=== PATIENT | female | born 1960 | race American Indian/Alaskan Native ===

== ENCOUNTER 2016-09-22 09:53 | Outpatient (CLI) | payer MEDICAID ==
--- NOTE | 2016-09-23 10:17 | Mammography Report ---
BILATERAL DIGITAL SCREENING MAMMOGRAM with CAD : 09/22/16 09:53:00 CLINICAL: Routine screening. COMPARISON:08/07/15 FINDINGS: The breasts are heterogeneously dense, which may obscure small masses. No mass, architectural distortion or suspicious calcifications. A 5 cm round medication patch on the upper inner left breast. IMPRESSION: No mammographic evidence of malignancy. BI-RADS CATEGORY: 2 -- Benign RECOMMENDATION: Routine mammographic screening in one year. COMMENT: Patient follow-up letters are generated by our [employer] application.
== END 2016-09-22 09:54 | disposition home or self-care (01) ==
LOC: SPVWC 09:53
PROVIDERS: ATTEND Internal Medicine
DX: Z12.31 Encounter for screening mammogram for malignant neoplasm of breast (principal)
CPT/HCPCS: 77067; G0202

== ENCOUNTER 2018-01-23 10:57 | Outpatient (CLI) | payer MEDICAID ==
--- NOTE | 2018-01-23 15:19 | Mammography Report ---
BILATERAL DIGITAL SCREENING MAMMOGRAM with CAD : 01/23/18 10:57:00 CLINICAL: Routine screening. COMPARISON:09/22/16 FINDINGS: The breasts are heterogeneously dense, which may obscure small masses. No mass, architectural distortion or suspicious calcifications. IMPRESSION: No mammographic evidence of malignancy. BI-RADS CATEGORY: 2 -- Benign RECOMMENDATION: Routine mammographic screening in one year. COMMENT: Patient follow-up letters are generated by our [employer] application.
== END 2018-01-23 10:58 | disposition home or self-care (01) ==
LOC: SPVWC 10:57
PROVIDERS: ATTEND Internal Medicine
DX: Z12.31 Encounter for screening mammogram for malignant neoplasm of breast (principal)
CPT/HCPCS: 77067

== ENCOUNTER 2020-02-23 14:22 | Emergency (ER) | payer MEDICAID ==
[2020-02-23 15:01] VITALS: BP 133/73
[2020-02-23] MEDS ORDERED: levETIRAcetam 500 MG in DEXTROSE 5% IN WATER 100 ML IV ONE (15:32)
[2020-02-23 16:15] LABS: Basophils % (Auto) 0.7 % (0.0-1.8); Hematocrit 35.2 % (30.3-42.9); Hemoglobin 11.7 gm/dl (10.1-14.3); Lymphocytes # (Auto) 2.3 K/mm3 (1.2-5.4); Lymphocytes % (Auto) 53.4 % (13.4-35.0); Mean Corpuscular HGB Conc 33 % (30-34); Mean Corpuscular Volume 92 fl (79-97); Monocytes # (Auto) 0.4 K/mm3 (0.0-0.8); Monocytes % (Auto) 8.8 % (0.0-7.3); Platelet Count 146 K/mm3 (140-440); Red Blood Count 3.82 M/mm3 (3.65-5.03); Red Cell Distribution Width 13.3 % (13.2-15.2)
--- NOTE | 2020-02-23 16:24 | Emergency Department Report ---
ED Dizziness HPI - General Chief Complaint: Dizziness Stated Complaint: DIZZINESS Time Seen by Provider: 02/23/20 15:06 Source: patient, family ([employer]), EMS Mode of arrival: Stretcher Limitations: Physical Limitation - History of Present Illness Initial Comments: 59-year-old female with a past medical history of seizures, hypertension, bipolar disorder, schizophrenia, and mild dementia presents to the hospital unsteady gait and dizzy spells. Patient states she got up too fast and fell back down to a chair. She denies head injury or LOC. She is currently asymptomatic and states she feels fine. Patient also states year is 2017 and she is currently at [facility]. 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 Patient resides in a personal [facility]. Spoke to Ms. Roque at the personal-jail for additional information. She states the last 2 weeks patient has had intermittent episodes of unsteady gait and dizziness complaints. She notices episodes upon standing and sometimes with walking. Patient states she walks with a cane at times. Patient was seen by her primary care doctor Dr. Delgadillo on February 19 regarding this complaint. She had her metformin discontinued and glipizide was provided instead. Game Trapper states patient's glucose levels have been in a good range however, her blood pressure is a little bit low at times. At 10 AM patient stood up and complained of feeling dizzy and therefore the space and missile operations place the chair behind her so that she would not fall to the ground. This afternoon patient was sitting in a chair when her upper body started shaking and resemble seizure activity for approximately 2 minutes. Patient's eyes were open but she was not responding. Immediately after shaking spell patient was able to answer questions without alteration in mental status. As per medical record list patient is on Keppra which is prescribed for seizures. PMD Dr Solorzano Patient also apparently has recently started seeing a international nurse for renal sufficiency. Supervisor Reclamation: Dr. Vogel - Related Data Home Medications Medication Instructions Recorded Confirmed Last Taken Aspirin EC [Halfprin EC] 81 mg PO QDAY 02/23/20 02/23/20 Unknown Benztropine [Cogentin] 0.5 mg PO BID 02/23/20 02/23/20 Unknown Chlorpromazine HCl [chlorproMAZINE] 50 mg PO BID 02/23/20 02/23/20 Unknown Chlorpromazine HCl [chlorproMAZINE] 200 mg PO QHS 02/23/20 02/23/20 Unknown Divalproex [Micaela TORRES] 250 mg PO BID 02/23/20 02/23/20 Unknown Famotidine [Pepcid] 40 mg PO DAILY 02/23/20 02/23/20 Unknown Lovastatin 20 mg PO HS 02/23/20 02/23/20 Unknown Venlafaxine HCl [Venlafaxin ER] 75 mg PO DAILY 02/23/20 02/23/20 Unknown Venlafaxine HCl [Venlafaxine HCl 150 mg PO 02/23/20 Unknown ER] Vitamin D3 1,000 UNIT TAB 1,000 mg PO DAILY 02/23/20 02/23/20 Unknown cloNIDine [Catapres] 0.2 mg PO TID 02/23/20 02/23/20 Unknown donepeziL [Aricept] 10 mg PO QDAY 02/23/20 02/23/20 Unknown hydrALAZINE [Apresoline TAB] 100 mg PO BID 02/23/20 02/23/20 Unknown levETIRAcetam [Keppra TAB] 500 mg PO BID 02/23/20 02/23/20 Unknown traZODone [Desyrel] 100 mg PO QHS 02/23/20 02/23/20 Unknown Previous Rx's Medication Instructions Recorded Last Taken Type Meclizine [Antivert] 25 mg PO TID PRN #20 tablet 02/23/20 Unknown Rx Allergies Allergy/AdvReac Type Severity Reaction Status Date / Time codeine Allergy Unknown Verified 02/23/20 15:02 ED Review of Systems ROS: Stated complaint: DIZZINESS Other details as noted in HPI Comment: All other systems reviewed and negative ED Past Medical Hx - Past Medical History Hx Hypertension: Yes Hx Diabetes: Yes Hx Seizures: Yes Additional medical history: bipolar, schizo - Surgical History Additional Surgical History: TL - Social History Smoking Status: Former Smoker Substance Use Type: None - Medications Home Medications: Home Medications Medication Instructions Recorded Confirmed Last Taken Type Aspirin EC [Halfprin EC] 81 mg PO QDAY 02/23/20 02/23/20 Unknown History Benztropine [Cogentin] 0.5 mg PO BID 02/23/20 02/23/20 Unknown History Chlorpromazine HCl [chlorproMAZINE] 50 mg PO BID 02/23/20 02/23/20 Unknown History Chlorpromazine HCl [chlorproMAZINE] 200 mg PO QHS 02/23/20 02/23/20 Unknown History Divalproex [Micaela TORRES] 250 mg PO BID 02/23/20 02/23/20 Unknown History Famotidine [Pepcid] 40 mg PO DAILY 02/23/20 02/23/20 Unknown History Lovastatin 20 mg PO HS 02/23/20 02/23/20 Unknown History Meclizine [Antivert] 25 mg PO TID PRN #20 tablet 02/23/20 Unknown Rx Venlafaxine HCl [Venlafaxin ER] 75 mg PO DAILY 02/23/20 02/23/20 Unknown History Venlafaxine HCl [Venlafaxine HCl 150 mg PO 02/23/20 Unknown History ER] Vitamin D3 1,000 UNIT TAB 1,000 mg PO DAILY 02/23/20 02/23/20 Unknown History cloNIDine [Catapres] 0.2 mg PO TID 02/23/20 02/23/20 Unknown History donepeziL [Aricept] 10 mg PO QDAY 02/23/20 02/23/20 Unknown History hydrALAZINE [Apresoline TAB] 100 mg PO BID 02/23/20 02/23/20 Unknown History levETIRAcetam [Keppra TAB] 500 mg PO BID 02/23/20 02/23/20 Unknown History traZODone [Desyrel] 100 mg PO QHS 02/23/20 02/23/20 Unknown History ED Physical Exam - General Limitations: Physical Limitation - Other Other exam information: General: No acute distress Head: Atraumatic Eyes: normal appearance ENT: Moist mucous membranes Neck: Normal appearance, no midline tenderness Chest: Clear to auscultation bilaterally CV: Regular rate and rhythm Abdomen: Soft, normal bowel sounds, nontender, nondistended, no rebound or guarding Back: Normal inspection Extremity: Normal inspection, full range of motion Neuro: Alert O x 3, no facial asymmetry, speech clear, no gross motor sensory deficit, patient has a steady gait with ambulation however she does need assistance of nearby objects on occasion and states she ambulates with a cane at times Psych: Appropriate behavior Skin: No rash ED Course Vital Signs 02/23/20 14:47 Temperature 98.5 F Pulse Rate 64 Respiratory 13 Rate Blood Pressure 133/73 [Left] O2 Sat by Pulse 98 Oximetry ED Medical Decision Making - Lab Data Result diagrams: 02/23/20 15:51 02/23/20 15:51 Lab Results 02/23/20 02/23/20 02/23/20 Range/Units 15:51 15:51 15:51 WBC 4.4 L (4.5-11.0) K/mm3 RBC 3.82 (3.65-5.03) M/mm3 Hgb 11.7 (10.1-14.3) gm/dl Hct 35.2 (30.3-42.9) % MCV 92 (79-97) fl MCH 31 (28-32) pg MCHC 33 (30-34) % RDW 13.3 (13.2-15.2) % Plt Count 146 (140-440) K/mm3 Lymph % (Auto) 53.4 H (13.4-35.0) % Martin % (Auto) 8.8 H (0.0-7.3) % Eos % (Auto) 1.0 (0.0-4.3) % Baso % (Auto) 0.7 (0.0-1.8) % Lymph # 2.3 (1.2-5.4) K/mm3 Martin # 0.4 (0.0-0.8) K/mm3 Eos # 0.0 (0.0-0.4) K/mm3 Baso # 0.0 (0.0-0.1) K/mm3 Seg Neutrophils % 36.1 L (40.0-70.0) % Seg Neutrophils # 1.6 L (1.8-7.7) K/mm3 Sodium 138 (137-145) mmol/L Potassium 4.5 (3.6-5.0) mmol/L Chloride 100.6 (98-107) mmol/L Carbon Dioxide 26 (22-30) mmol/L Anion Gap 16 mmol/L BUN 23 H (7-17) mg/dL Creatinine 1.6 H (0.6-1.2) mg/dL Estimated GFR 40 ml/min BUN/Creatinine Ratio 14 % Glucose 62 L (65-100) mg/dL Calcium 9.9 (8.4-10.2) mg/dL Magnesium 2.40 H (1.7-2.3) mg/dL Total Bilirubin < 0.20 (0.1-1.2) mg/dL AST 14 (5-40) units/L ALT 8 (7-56) units/L Alkaline Phosphatase 70 (35-129) units/L Total Protein 7.1 (6.3-8.2) g/dL Albumin 3.8 L (3.9-5) g/dL Albumin/Globulin Ratio 1.2 % Valproic Acid 40.4 L (50-100) ug/mL - EKG Data -: EKG Interpreted by [facility] EKG shows normal: sinus rhythm, ST-T waves (no stemi) Rate: normal (84) - Radiology Data Radiology results: report reviewed CT head/brain wo con INDICATION / CLINICAL INFORMATION: 59 years Female; unsteady gait. TECHNIQUE: Routine CT head without contrast. All CT scans at this location are performed using CT dose reduction for ALARA by means of automated exposure control. COMPARISON: None. 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 Otherwise, no acute hemorrhage, mass effect, midline shift, hydrocephalus, or acute, large territorial infarct. cerebral and cerebellar atrophy. There are areas of decreased attenuation in the white matter of the cerebral hemispheres. These are nonspecific findings and may be related to microangiopathy (hypertension, diabetes, atherosclerosis), given the patient's age. It might be difficult to evaluate for small areas of ischemia without diffusion imaging by MRI. CRANIOCERVICAL JUNCTION: No significant abnormality. ORBITS: No significant abnormality of visualized orbits. SINUSES / MASTOIDS: No significant abnormality in the visualized paranasal sinuses or mastoid air cells. ADDITIONAL FINDINGS: Atherosclerotic disease is seen in the anterior and posterior circulation. IMPRESSION: 1. No focal mass, hemorrhage, hydrocephalus, or acute, large territorial infarct. - Medical Decision Making Patient continues to states she feels fine in the ED. Patient ambulated without assistance several times including to and from bathroom without falling. ED work-up unremarkable including labs with exception of mild renal sufficiency which is chronic and subtherapeutic Depakote level. Her EKG and CT head are a lso unremarkable with normal orthostatic vital signs. Patient was provided food in the ED. She denies urinary symptoms and lacks fever or leukocytosis. Patient is currently on Keppra for seizures and receives extra 500 mg dose p.o. in the ED. space and missile operations states she has been with patient 6 years and has not witnessed a seizure. However it is evident as per her med list that she has a history. patient will be discharged back to [facility]ail. Patient does have chronic renal insufficiency and is currently under the care of a nephrology. She will be tried on a course of meclizine to see if this helps with her symptoms Critical Care Time: No Critical care attestation.: If time is entered above; I have spent that time in minutes in the direct care of this critically ill patient, excluding procedure time. ED Disposition Clinical Impression: Dizziness, Witnessed seizure-like activity, CRI (chronic renal insufficiency) Disposition: DC- TO HOME OR SELFCARE Is pt being admited?: No Does the pt Need Aspirin: No Condition: Stable Instructions: Dizziness (ED), Recurrent Seizures Adult (ED) Additional Instructions: Continue current medication as prescribed. Follow-up with your doctor or doctor/clinic provided. Return if symptoms worsen as indicated by your discharge instructions. Prescriptions: Meclizine [Antivert] 25 mg PO TID PRN #20 tablet PRN Reason: Vertigo Referrals: Your, PMD [Other] - 3-5 Days Time of Disposition: 18:37
[2020-02-23 16:25] LABS: Alanine Aminotransferase 8 units/L (7-56); Albumin 3.8 g/dL (3.9-5); BUN/Creatinine Ratio 14; Blood Urea Nitrogen 23 mg/dL (7-17); Calcium 9.9 mg/dL (8.4-10.2); Hemolysis Index 11
[2020-02-23] MEDS ORDERED: levETIRAcetam 500 MG TAB PO ONE (16:43)
--- NOTE | 2020-02-23 17:05 | Cat Scan Report ---
CT head/brain wo con INDICATION / CLINICAL INFORMATION: 59 years Female; unsteady gait. TECHNIQUE: Routine CT head without contrast. All CT scans at this location are performed using CT dos e reduction for ALARA by means of automated exposure control. COMPARISON: None. FINDINGS: BRAIN / INTRACRANIAL CONTENTS: Old, small corpus striatal infarct seen in the anterior gangliocapsula r region on the left. Otherwise, no acute hemorrhage, mass effect, midline shift, hydrocephalus, or acute, large territori al infarct. cerebral and cerebellar atrophy. There are areas of decreased attenuation in the white matter of the cerebral hemispheres. These are n onspecific findings and may be related to microangiopathy (hypertension, diabetes, atherosclerosis), given the patient's age. It might be difficult to evaluate for small areas of ischemia without diffus ion imaging by MRI. CRANIOCERVICAL JUNCTION: No significant abnormality. ORBITS: No significant abnormality of visualized orbits. SINUSES / MASTOIDS: No significant abnormality in the visualized paranasal sinuses or mastoid air alfredo ls. ADDITIONAL FINDINGS: Atherosclerotic disease is seen in the anterior and posterior circulation. IMPRESSION: 1. No focal mass, hemorrhage, hydrocephalus, or acute, large territorial infarct. Signer Name: Edmund Cardozo MD, III Signed: 02/23/2020 5:01 PM Workstation Name: [id number]
== END 2020-02-23 19:15 | disposition home or self-care (01) ==
LOC: ED 14:22
DX: R42 Dizziness and giddiness (principal); E11.22 Type 2 diabetes mellitus with diabetic chronic kidney disease; I12.9 Hypertensive chronic kidney disease with stage 1 through stage 4 chronic kidney disease, or unspecified chronic kidney disease; N18.9 Chronic kidney disease, unspecified; R56.9 Unspecified convulsions; Z98.890 Other specified postprocedural states; Z87.891 Personal history of nicotine dependence; Z79.899 Other long term (current) drug therapy; Z88.8 Allergy status to other drugs, medicaments and biological substances
CPT/HCPCS: 36415; 70450; 80053; 80164; 83735; 85025; 93005; J1953

== ENCOUNTER 2020-11-23 10:28 | Outpatient (CLI) | payer MEDICAID ==
--- NOTE | 2020-11-25 09:02 | Mammography Report ---
DIGITAL SCREENING MAMMOGRAM WITH CAD, 11/23/2020 CLINICAL INFORMATION / INDICATION: Routine screening mammography. SCREENING MAMMOGRAM TECHNIQUE: Digital bilateral 2D mammography was obtained in the craniocaudal and mediolateral obliqu e projections. This examination was interpreted with the benefit of Computer-Aided Detection analysis . COMPARISON: 01/23/2018 FINDINGS: Breast Density: The breasts are heterogeneously dense, which may obscure small masses. No dominant mass, suspicious calcifications, or architectural distortion in either breast. IMPRESSION: No mammographic evidence of malignancy. Follow up recommendation: Routine yearly BI-RADS Category 1: Negative. A "normal" or negative report should not discourage follow up or biopsy of a clinically significant f inding. A written summary of these findings will be mailed to the patient. The patient will be entered into a mammography reporting system which will generate a reminder letter for the patient's next appointmen t at the appropriate interval. The [employer] recommends yearly mammograms starting at age 40 and continuing as l rush as a woman is in good health. Breast MRI is recommended for women with an approximate 20-25% or greater lifetime risk of breast cancer, including women with a strong family history of breast or ova florin cancer or who have been treated for Hodgkin's disease. Signer Name: Saeed Dan MD Signed: 11/25/2020 8:57 AM Workstation Name: [id number]
== END 2020-11-23 10:29 | disposition home or self-care (01) ==
LOC: SPVWC 10:28
PROVIDERS: ATTEND Internal Medicine
DX: Z12.31 Encounter for screening mammogram for malignant neoplasm of breast (principal); N64.89 Other specified disorders of breast
CPT/HCPCS: 77067